=== PATIENT | female | born 1945 | race Hispanic/Latino ===

== ENCOUNTER → 2022-05-12 | Outpatient (CLI) | payer OTHER | END | disposition home or self-care (01) | LOC: RAH 13:47 | PROVIDERS: ATTEND Internal Medicine Cardiovascular Disease | DX: Z13.6 Encounter for screening for cardiovascular disorders (principal); R93.1 Abnormal findings on diagnostic imaging of heart and coronary circulation | CPT/HCPCS: 75571 ==

== ENCOUNTER → 2022-08-24 | Outpatient (CLI) | payer MEDICARE ==
[2022-08-24 12:11] LABS: BASOPHILS % (AUTO) 0.5 % (0.0-5.0); EOSINOPHILS % (AUTO) 2.9 % (0.0-8.0); MEAN CORPUSCULAR HEMOGLOBIN 26.3 pg (27.0-33.0); MEAN CORPUSCULAR HGB CONC 31.9 g/dL (32.0-36.0); MEAN CORPUSCULAR VOLUME 82.5 fL (79-99); MONOCYTES % (AUTO) 9.5 % (3.0-13.0); NEUTROPHILS % (AUTO) 57.9 % (40.0-77.0); PLATELET COUNT (AUTO) 235 K/uL (130-400); RED BLOOD CELL COUNT(AUTO) 5.21 MIL/uL (4.00-5.50); RED CELL DISTRIBUTION WIDTH 14.7 % (11.0-15.5); WHITE BLOOD COUNT (AUTO) 9.2 K/uL (4.8-10.8)
[2022-08-24 12:22] LABS: CREATININE 1.6 mg/dL (0.5-1.5); POTASSIUM 4.6 mmol/L (3.5-5.1)
== END | disposition home or self-care (01) ==
LOC: LAB 10:27
PROVIDERS: ATTEND Internal Medicine Cardiovascular Disease
DX: E78.5 Hyperlipidemia, unspecified (principal)
CPT/HCPCS: 36415; 80048; 85025

== ENCOUNTER 2023-12-11 05:47 | Day surgery (SDC) | payer MEDICARE ==
[2023-12-07 10:11] VITALS: BP 139/70; PULSE 65; RESP 18; TEMP 97.5
[2023-12-07 10:14] LABS: BASOPHILS # (AUTO) 0.07 K/uL (0.00-0.20); BASOPHILS % (AUTO) 0.8 % (0.0-5.0); EOSINOPHILS # (AUTO) 0.36 K/uL (0.00-0.70); EOSINOPHILS % (AUTO) 4.4 % (0.0-8.0); HEMATOCRIT 46.9 % (36-48); IMMATURE GRANULOCYTE ABSOLUTE 0.02 K/uL (0-1); LYMPHOCYTES # (AUTO) 2.2 K/uL (1.0-4.8); LYMPHOCYTES % (AUTO) 26.8 % (21.0-51.0); MEAN CORPUSCULAR HEMOGLOBIN 26.1 pg (27.0-33.0); MEAN CORPUSCULAR HGB CONC 31.6 g/dL (32.0-36.0); MEAN CORPUSCULAR VOLUME 82.6 fL (79-99); MONOCYTES # (AUTO) 0.7 K/uL (0.1-1.0); MONOCYTES % (AUTO) 8.8 % (3.0-13.0); NEUTROPHILS # (AUTO) 4.9 K/uL (1.8-7.7); PLATELET COUNT (AUTO) 222 K/uL (130-400); RED BLOOD CELL COUNT(AUTO) 5.68 MIL/uL (4.00-5.50); RED CELL DISTRIBUTION WIDTH 14.6 % (11.0-15.5); WHITE BLOOD COUNT (AUTO) 8.3 K/uL (4.8-10.8)
[2023-12-07 10:26] LABS: INR 0.97 (0.85-1.15); PROTHROMBIN TIME 10.5 SEC (9.6-11.6)
[2023-12-07 10:27] LABS: CREATININE 1.6 mg/dL (0.5-1.0); PARTIAL THROMBOPLASTIN TIME 25.4 SEC (26.3-35.5); POTASSIUM 4.6 mmol/L (3.5-5.1)
--- NOTE | 2023-12-07 11:09 | EKG ---
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
[2023-12-11] VITALS (15 sets, daily range): BP systolic 99–137; BP diastolic 48–81; PULSE 59–77; RESP 10–22; TEMP 96.9–98
[~2023-12-11] VITALS: Ht 175.3 cm; Wt 88.5 kg
[~2023-12-11 05:47] MED LIST: DAPAGLIFLOZIN PO; DONE-53 PO; FAMO20TA8 PO; IMIP50TA PO; METO-408 PO; ROSU20TA98 PO
[2023-12-11] MEDS: 0.9%NACL 1000ML 1,000 ML IV ONE ×2 (06:43→12:39)
[2023-12-11] MEDS ORDERED: LIDOCAINE HCL 1% MDV 50ML VIAL ONE (07:33)
[2023-12-11] MEDS ORDERED: ceFAZolin SODIUM 1 GM VIAL ONE (07:33)
[2023-12-11] MEDS ORDERED: IOHEXOL-350 50ML VIAL IV ONE (07:34)
[2023-12-11] MEDS ORDERED: MEPERIDINE-PF 25 MG/ML SYG ONE ×3 (07:34→08:01)
[2023-12-11] MEDS ORDERED: MIDAZOLAM HCL 1 MG/ML 2ML VIAL ONE ×2 (07:34→08:01)
[2023-12-11] MEDS ORDERED: BUPIvacaine/PF 0.25% 30ML VIAL IJ ONE (07:37)
[2023-12-11] MEDS ORDERED: TRAM50TA4 PO (09:07)
[2023-12-11] MEDS ORDERED: acetaMINOPHEN WITH coDEINE 1 TAB TAB PO PRN (09:30)
[2023-12-11] MEDS ORDERED: acetaMINOPHEN 500 MG TABLET PO PRN (09:30)
--- NOTE | 2023-12-11 09:30 | NUR ---
DRESSING: DRESSING TO LEFT UPPER CHEST DRY/INTACT WITH NO REDNESS/SWELLING NOTED TO SURROUNDING AREA. LEFT ARM IN PLACE TO ARM SLING.
--- NOTE | 2023-12-11 09:45 | NUR ---
dressing: dressing left upper chest remains dry/intact with no redness/swelling noted to surrounding area. left arm remains in place to arm sling.
--- NOTE | 2023-12-11 10:00 | NUR ---
dressing: dressing to left upper chest remains dry/intact with no redness/swelling noted to surrounding area. left arm in place to arm sling.
--- NOTE | 2023-12-11 10:15 | NUR ---
dressing: dressing to left upper chest remains dry/intact with no active bleeding present. no redness/swelling noted to surrounding area. left arm in place to arm sling.
--- NOTE | 2023-12-11 10:30 | NUR ---
dressing: dressing left upper chest remains dry/intact with no redness/swelling to surrounding area. left arm in place to arm sling.
--- NOTE | 2023-12-11 11:37 | HMCIMG ---
CHEST 1VW HISTORY: Pacemaker placement COMPARISON: None FINDINGS: A frontal projection of the chest was obtained. No acute pulmonary infiltrates is seen. The heart is borderline enlarged. Pacemaker is seen entering from the left. Degenerative changes are seen. No pneumothorax is seen. No evidence of aortic calcification is seen. IMPRESSION: 1. No acute pulmonary infiltrate is seen.
--- NOTE | 2023-12-11 12:00 | NUR ---
activity: assisted pt to standing position and then to wheelchair. noted pt to be clammy and pt states feeling dizzy. pt lost loc for few seconds. rapid response called. see rapid response sheet.
--- NOTE | 2023-12-11 12:05 | NUR ---
consult: dr. patel here to assess pt. orders given to bolus 500cc ns. spoke to .
--- NOTE | 2023-12-11 12:05 | NUR ---
activity: carried pt to bed and connected back to monitor. pt able to respond to name.
--- NOTE | 2023-12-11 12:05 | NUR ---
dressing: dressing to left upper chest remains dry/intact with no redness/swelling noted to surrounding area. left arm remains in place to arm sling.
--- NOTE | 2023-12-11 12:18 | NUR ---
assessment: pt awake, alert and oriented x 3. skin cool to touch.
[2023-12-11] MEDS ORDERED: 0.9%NACL 1000ML 1,000 ML IV SCH (12:30)
--- NOTE | 2023-12-11 12:33 | NUR ---
ppm : yue ([employer]) rep here to interrogate ppm
--- NOTE | 2023-12-11 12:48 | NUR ---
dressing: dressing to left upper chest remains dry/intact with no redness/swelling noted to surrounding area. left arm remains in place to arm sling.
[2023-12-11] MEDS ORDERED: PIND10TA2 PO (14:45)
--- NOTE | 2023-12-11 14:51 | NUR ---
dr patel to come consult with pt and incident that occured while being dc earlier dr patel will adjust meds and see him in 2 weeks pt and family agree, pt to be dc home today as planned pt is caox 3 with no c/o denies benjamin pain , n/v , blurry vision , able to move arms and legs with no difficulty , up to side of bed with no c/o , stands up and ambulates to wc with no c/o in no distress without incident , dressing to left upper chest remains dry/intact with no redness/swelling noted to surrounding area. left arm remains in place to arm sling. pt out to car via [place] to car without incident or c/o family to take home
== END 2023-12-11 15:00 | disposition home or self-care (01) ==
LOC: EDSEX 05:47 → DAH 05:47
PROVIDERS: ATTEND Internal Medicine Cardiovascular Disease
DX: R55 Syncope and collapse (principal); G90.1 Familial dysautonomia [Riley-Day]; I10 Essential (primary) hypertension; G90.01 Carotid sinus syncope; E78.5 Hyperlipidemia, unspecified; E11.9 Type 2 diabetes mellitus without complications; Z87.891 Personal history of nicotine dependence; Z88.8 Allergy status to other drugs, medicaments and biological substances; Z90.49 Acquired absence of other specified parts of digestive tract; Z79.899 Other long term (current) drug therapy
CPT/HCPCS: 80048; 85025; 85610; 85730; 36415; 93005; 33208; 82948 ×3; 71045; A4223 ×3; C1785; C1898 ×2; J0690; J7030 ×2; J0665; J2250 ×2; J2175 ×3; J3490; A4215; A6251; A4222; A4221; A4663; A4216; A6258; A4606; 99156; 99157; Q9967